=== PATIENT | female | born 1960 | race Caucasian/White ===

== ENCOUNTER 2019-05-10 16:12 | Emergency (ER) | payer BC ==
[~2019-05-10] VITALS: Ht 165.1 cm; Wt 88.5 kg
[2019-05-10] MEDS ORDERED: LASIX 20 MG TAB20 MG PO (16:19)
[2019-05-10] MEDS ORDERED: COUMADIN7.5 MG PO (16:19)
[2019-05-10] MEDS ORDERED: ZANAFLEX4 M1 PO (16:20)
[2019-05-10 17:21] LABS: INR 7.2
[2019-05-10] MEDS ORDERED: KEFLEX500 M1 PO (17:47)
[2019-05-10] MEDS ORDERED: NORCO 5-325 TA1 EAC1 PO ×2 (17:49→17:51)
[2019-05-10 17:57] VITALS: BP 191/122
== END 2019-05-10 18:00 | disposition home or self-care (01) ==
LOC: M.ERS 16:12
PROVIDERS: Physician Assistant
DX: S91.312A Laceration without foreign body, left foot, initial encounter (principal); R79.1 Abnormal coagulation profile; W25.XXXA Contact with sharp glass, initial encounter; Y93.89 Activity, other specified; Y92.89 Other specified places as the place of occurrence of the external cause; Y99.8 Other external cause status

== ENCOUNTER → 2020-10-16 | Outpatient (CLI) | payer MEDICAID ==
[~2020-10-16] VITALS: Ht 162.6 cm; Wt 142.9 kg
[~2020-10-16] MED LIST: COUMADIN7.5 MG PO; COZAAR 25 MG TA25 M1 PO; JANTOVEN5 MG PO; JANTOVEN7.5 MG PO; KEFLEX500 M1 PO; LASIX 20 MG TAB20 MG PO; LIPITOR 20 MG T20 M1 PO; LOPRESSOR50 MG PO; NEURONTIN100 MG PO; NORCO 10-325 T1 EACH PO; NORCO 5-325 TA1 EAC1 PO; TOPROL XL50 MG; ZANAFLEX4 M1 PO
[2020-10-16 15:23] LABS: ABSOLUTE BASOPHILS 0.1 thou/uL (0.0-0.2); ABSOLUTE EOSINOPHILS 0.2 thou/uL (0.0-0.7); ABSOLUTE LYMPHOCYTES 1.1 thou/uL (0.8-5.3); ABSOLUTE MONOCYTES 0.7 thou/uL (0.0-1.2); ABSOLUTE NEUTROPHILS 6.3 thou/uL (1.6-8.1); BASOPHILS 0.8 %; EOSINOPHILS 2.8 %; HEMATOCRIT 40.7 % (37.0-47.0); HEMOGLOBIN 13.1 gm/dL (12.0-15.0); LYMPHOCYTES 12.8 %; MCH 29.1 pg (26.0-34.0); MCHC 32.1 g/dL (28.0-37.0); MCV 90.6 fL (80.0-100.0); MONOCYTES 8.4 %; MPV 7.3 fl. (7.2-11.1); NUCLEATED RBCS 0 /100WBC; PLATELET COUNT* 266 thou/uL (150-400); POLYS 75.2 %; RBC 4.49 mil/uL (4.20-5.00); RDW-CV 16.7 % (10.5-14.5); WBC 8.4 thou/uL (4.0-11.0)
[2020-10-16 15:30] LABS: CALCIUM 9.8 mg/dL (8.5-10.1); CREATININE 1.2 mg/dL (0.6-1.3)
[2020-10-16 15:31] LABS: APTT 37.3 Seconds (25.0-31.3); PROTIME 20.2 Seconds (9.20-11.50)
[2020-10-16 15:40] LABS: ALBUMIN 3.4 g/dL (3.4-5.0); TOTAL BILIRUBIN 0.8 mg/dL (<0.1-1.0); TOTAL PROTEIN 6.8 g/dL (6.4-8.2)
[2020-10-16 15:42] LABS: POTASSIUM 2.9 mmol/L (3.5-5.1)
[2020-10-16 17:18] VITALS: BP 170/90
--- NOTE | 2020-10-17 10:31 | EKG ---
[place] [address] ELECTROCARDIOGRAM REPORT Name: ORLANDO ADAMS Room: [facility]#: [id number] Admission: 10/16/20 Attend Phys: FOR YessicaEnzoKaren MARIA LUISA U Discharge: Date of : 62 Date of Service: 10/16/20 1449 Report #: [id number] THIS REPORT FOR: //name// [facility] ED Test Date: 2020-10-16 Test Time: 14:49:17 Pat Name: ORLANDO ADAMS Department: Room: Gender: F [employer] Functional Analyst: CCD : 1960 Requested By: Marty Greene Order Number: [id number] MD: Chu Hyatt Measurements Intervals [place] Rate: 119 P: 23 MA: 160 QRS: 21 QRSD: 117 T: 4 QT: 362 QTc: 510 Interpretive Statements Sinus tachycardia supratachycardia, unsustained with abberancy Nonspecific intraventricular conduction delay Inferior infarct, old No previous ECG available for comparison Electronically Signed On 10-17-2020 10:30:55 V/[employer] SIGNAL OFFICER by Chu Hyatt [email or web address] <ELECTRONICALLY SIGNED> By: Chu Hyatt MD, FAC 10/17/20 1030 1449 1449 Chu Hyatt MD, [facility] /EPI
--- NOTE | 2020-10-17 10:33 | EKG ---
[place] [address] ELECTROCARDIOGRAM REPORT Name: ORLANDO ADAMS Room: [facility]#: [id number] Admission: 10/16/20 Attend Phys: FOR YessicaEnzoKaren MARIA LUISA U Discharge: Date of : 62 Date of Service: 10/16/20 1555 Report #: [id number] THIS REPORT FOR: //name// [facility] ED Test Date: 2020-10-16 Test Time: 15:55:22 Pat Name: ORLANDO ADAMS Department: Room: Gender: F Installer: LEANDRO : 1960 Requested By: Marty Greene Order Number: [id number] MD: Chu Hyatt Measurements Intervals [place] Rate: 132 P: [place]: QRS: 5 QRSD: 93 T: -10 QT: 362 QTc: 537 Interpretive Statements sinus tachycardia frequent and consecutive pac's with abberancy Abnormal R-wave progression, early transition Abnormal inferior Q waves Borderline T abnormalities, anterior leads Borderline prolonged QT interval Compared to ECG 10/16/2020 14:49 no change Electronically Signed On 10-17-2020 10:33:06 INSPECTOR PURCHASED [employer]S by Chu Hyatt [email or web address] <ELECTRONICALLY SIGNED> By: Chu Hyatt MD, [facility] 10/17/20 1033 1555 1555 Chu Hyatt MD, [facility] /EPI
--- NOTE | 2020-10-17 11:50 | EKG ---
[place] [address] ELECTROCARDIOGRAM REPORT Name: ORLANDO ADAMS Room: [facility]#: [id number] Admission: 10/16/20 Attend Phys: FOR Paul MARIA LUISA U Discharge: Date of : 62 Date of Service: 10/16/20 1603 Report #: [id number] THIS REPORT FOR: //name// [facility] ED Test Date: 2020-10-16 Test Time: 16:03:44 Pat Name: ORLANDO ADAMS Department: Room: Gender: F Children[employer]S Book Author: LEANDRO : 1960 Requested By: Marty Greene Order Number: [id number] Reading MD: Chu Hyatt Measurements Intervals [place] Rate: 143 P: 23 [place]: 148 QRS: 7 QRSD: 91 T: -4 QT: 350 QTc: 540 Interpretive Statements Sinus tachycardia pac's some of which are consecutive with aberrancy Abnormal R-wave progression, early transition Inferior infarct, old Compared to ECG 10/16/20 no change Electronically Signed On 10-17-2020 11:49:56 [employer] MECHANIC by Chu Hyatt [email or web address] <ELECTRONICALLY SIGNED> By: Chu Hyatt MD, [facility] 10/17/20 1149 1603 1603 Chu Hyatt MD, [facility] /EPI
== END ==
LOC: M.ULTRA 12:54 → M.ERS 12:54 → M.ULTRA 13:00
PROVIDERS: Family Medicine
DX: Z20.822 Contact with and (suspected) exposure to COVID-19 (principal); I25.10 Atherosclerotic heart disease of native coronary artery without angina pectoris; R00.0 Tachycardia, unspecified; J98.4 Other disorders of lung; M79.89 Other specified soft tissue disorders; Z86.718 Personal history of other venous thrombosis and embolism